=== PATIENT | female | born 2005 | race Caucasian/White ===

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

== ENCOUNTER 2023-09-27 22:03 | Emergency (ER) | payer MEDICAID ==
[2023-09-27 22:32] VITALS: TEMP 99.2; O2SAT 99
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
[2023-09-27 23:23] VITALS: BP 99/66; PULSE 102; RESP 16
== END 2023-09-27 23:29 | disposition home or self-care (01) ==
LOC: ED 22:03
DX: H11.32 Conjunctival hemorrhage, left eye (principal); S00.83XA Contusion of other part of head, initial encounter; S80.12XA Contusion of left lower leg, initial encounter; S06.0X0A Concussion without loss of consciousness, initial encounter; Y09 Assault by unspecified means; R51.9 Headache, unspecified; Z79.899 Other long term (current) drug therapy; Z59.9 Problem related to housing and economic circumstances, unspecified; Z60.8 Other problems related to social environment
CPT/HCPCS: 70450; 99283